=== PATIENT | female | born 1975 | race Caucasian/White ===

== ENCOUNTER 2018-09-30 16:57 | Emergency (ER) | payer OTHER ==
[2018-09-30 16:57] VITALS: BMI 44.8
[2018-09-30 17:06] VITALS: BP 128/71; PULSE 74; RESP 18; TEMP 98.8
--- NOTE | 2018-09-30 17:26 | ED PDOC ---
Arrival/HPI - General Chief Complaint: Shortness Of Breath Time Seen by Provider: 09/30/18 16:58 Historian: Patient - History of Present Illness Narrative History of Present Illness (Text): 09/30/18 17:24 43 y/o female, pmh including asthma, nkda, c/o coughing and shortness of breath x 5 days. pt. stated that she is on albuterol MDI/symbicort, coughing with occasional shortness of breath, on taper dose prednisone, no chest pain, no night sweat, no rash, no numbness or tingling, no dizziness, no change in vision, no other medical or psychological complaints. Past Medical History - Provider Review Nursing Documentation Reviewed: Yes - Infectious Disease Hx of Infectious Diseases: None - Reproductive Menopause: No - Cardiac Hx Cardiac Disorders: No - Pulmonary Hx Asthma: Yes - Neurological Hx Neurological Disorder: No - HEENT Hx HEENT Disorder: Yes (CONTACTS) - Renal Hx Renal Disorder: Yes Hx Kidney Stones: Yes (LONG AGO/PASSED NO SURGERY) - Endocrine/Metabolic Hx Endocrine Disorders: No - Hematological/Oncological Hx Blood Disorders: No - Integumentary Hx Dermatological Disorder: No - Musculoskeletal/Rheumatological Hx Musculoskeletal Disorders: Yes Hx Back Pain: (BILATERAL SCIATICA/INTERMITTENT) - Gastrointestinal Hx Gastrointestinal Disorders: No - Genitourinary/Gynecological Hx Genitourinary Disorders: Yes (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) - Psychiatric Hx Psychophysiologic Disorder: No Hx Substance Use: No - Surgical History Hx Breast Biopsy: Yes ( LEFT X2 BENIGN) Hx Tubal Ligation: Yes - Anesthesia Hx Anesthesia: Yes Hx Anesthesia Reactions: No Hx Malignant Hyperthermia: No Family/Social History - Physician Review Nursing Documentation Reviewed: Yes Family/Social History: Unknown Family HX Smoking Status: Never Smoked Hx Alcohol Use: No Hx Substance Use: No Allergies/Home Meds Allergies/Adverse Reactions: Allergies shellfish derived Allergy (Verified 09/30/18 17:06) RASH Home Medications: Home Meds Medication Instructions Recorded Confirmed Albuterol Sulfate [Proair Hfa] 0.09 mg IH 09/30/18 Budesonide/Formoterol Fumarate 1 aer IH BID 09/30/18 09/30/18 [Symbicort] Codeine Phosphate/Guaifenesin 5 ml PO PRN 09/30/18 09/30/18 [Virtussin AC Liquid] Prednisone [Deltasone] 10 mg PO 09/30/18 Review of Systems - Review of Systems Constitutional: absent: Fatigue, Fevers Eyes: absent: Vision Changes ENT: absent: Hearing Changes Respiratory: SOB, Cough, Sputum, Wheezing Cardiovascular: absent: Chest Pain Gastrointestinal: absent: Abdominal Pain, Nausea, Vomiting Musculoskeletal: absent: Arthralgias, Back Pain Skin: absent: Rash, Pruritis Neurological: absent: Headache, Dizziness Psychiatric: absent: Anxiety, Depression, Suicidal Ideation Physical Exam Vital Signs Reviewed: Yes Vital Signs Temp Pulse Resp BP Pulse Ox 09/30/18 17:02 98.8 F 74 18 128/71 96 Temperature: Afebrile Blood Pressure: Normal Pulse: Regular Respiratory Rate: Normal Appearance: Positive for: Well-Appearing, Non-Toxic, Comfortable Pain Distress: None Mental Status: Positive for: Alert and Oriented X 3 - Systems Exam Head: Present: Atraumatic, Normocephalic Pupils: Present: PERRL Extroacular Muscles: Present: EOMI Conjunctiva: Present: Normal Mouth: Present: Moist Mucous Membranes Neck: Present: Normal Range of Motion Respiratory/Chest: Present: Decreased Breath Sounds, Rhonchi. No: Respiratory Distress, Accessory Muscle Use, Wheezes, Rales, Retracting, Tachypneic, Tender to Palpation Cardiovascular: Present: Regular Rate and Rhythm, Normal S1, S2. No: Murmurs Abdomen: No: Tenderness, Distention, Peritoneal Signs, Rebound, Guarding Back: Present: Normal Inspection Upper Extremity: Present: Normal Inspection. No: Cyanosis, Edema Lower Extremity: Present: Normal Inspection. No: Edema Neurological: Present: GCS=15, CN II-XII Intact, Speech Normal Skin: Present: Warm, Dry, Normal Color. No: Rashes Psychiatric: Present: Alert, Oriented x 3, Normal Insight, Normal Concentration Medical Decision Making ED Course and Treatment: 09/30/18 17:25 -labs -chest xray -ekg -duoneb -observe and reassess 09/30/18 19:35 -Urine hcg is negative -EKG: NSR @ 94 BPM, no ST elevation or depression, no T wave inversion. -Chest xray show No consolidation or atelectasis or pleural effusion identified. no obvious consolidation, azithromycin. -Rapid flu is negative, clinical suspicious is low. -Labs show no acute findings -Dimer is negative. -Trop after 24 hours is negative -BNP within normal limit, HEART score is low. -Pt. feels well, lung is clear to auscultate with no wheezing/crackles/rhonchis. 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 - RAD Interpretation Radiology Orders: 09/30/18 17:21 CHEST PORTABLE [RAD] Stat CR Chest, 1 View. CLINICAL HISTORY: Cough 4-5 days COMPARISON: None provided. FINDINGS: LUNGS: The lungs appear clear. PLEURAL SPACES: No evidence of pleural effusion or pneumothorax. MEDIASTINUM: The cardiomediastinal silhouette is within normal limits. BONES: No acute osseous abnormality. IMPRESSION: No consolidation or atelectasis or pleural effusion identified. Electronically signed on Sep 30, 2018 7:36:33 PM EST by: Victor Hugo Car M.D., Certified by [facility], Diagnostic Radiology Rehabilitation Team Lead: Radiologist - EKG Interpretation EKG Interpretation (Text): 09/30/18 19:21 -EKG: NSR @ 94 BPM, no ST elevation or depression, no T wave inversion. 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 Disposition/Present on Arrival - Present on Arrival Any Indicators Present on Arrival: No History of DVT/PE: No History of Uncontrolled Diabetes: No Urinary Catheter: No History of Decub. 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 Prescriptions: Azithromycin 250 mg PO DAILY #4 tab Brompheniramine/Pseudoephed/Dm [Bromfed Dm Cough 118 ml] 10 ml PO QID PRN #250 ml PRN Reason: Other Montelukast [Singulair] 10 mg PO DAILY #10 tab Referrals: Kwan Richardson MD [Primary Care Provider] - Follow up with primary Meghan Matthew MD [Staff Provider] - Follow up with primary Forms: [facility] (Algerian), WORK NOTE
[2018-09-30] MEDS ORDERED: Sodium Chloride 0.9% 1,000 ML IV SCH (17:30)
[2018-09-30] MEDS: Albuterol-Ipratrop 3 mg / 0.5 (3 ml) UD IH SCH (18:14)
[2018-09-30 18:28] LABS: BASO # 0.02 K/mm3 (0.0-2.0); BASO % 0.2 % (0.0-3.0); HEMOGLOBIN 12.8 g/dL (12.0-16.0); LYMPH # 1.9 (1.2-3.4); LYMPH % 18.9 % (22.0-35.0); MEAN CELL VOLUME 85.1 fl (80.0-105.0); MEAN CORPUSCULAR HEMOGLOBIN 27.6 pg (25.0-35.0); MEAN CORPUSCULAR HGB CONC 32.4 g/dl (31.0-37.0); MEAN PLATELET VOLUME 8.9 fl (7.0-11.0); MONO # 0.5 (0.1-0.6); MONO % 4.5 % (1.0-6.0); RBC 4.64 10^6/uL (3.5-6.1); RED CELL DISTRIBUTION WIDTH 15.6 % (11.5-14.5)
[2018-09-30 18:42] LABS: ALB/GLOB RATIO 1.1 (1.1-1.8); ALBUMIN 4.1 g/dL (3.0-4.8); ALT/SGPT 22 U/L (7-56); AST/SGOT 28 U/L (14-36); BLOOD UREA NITROGEN 14 mg/dL (7-21); CALCIUM 11.4 mg/dL (8.4-10.5); GFR NON-AFRICAN AMERICAN > 60
[2018-09-30 18:54] LABS: B-TYPE NATRIURETIC PEPTIDE 37.9 pg/mL (0-450); TROPONIN I < 0.01 ng/mL
[2018-09-30 19:52] VITALS: O2SAT 97
--- NOTE | 2018-10-01 09:00 | RAD ---
HISTORY: cough x 4-5 days COMPARISON: None available. TECHNIQUE: Chest, one view. FINDINGS: LUNGS: No focal consolidation. PLEURA: No significant pleural effusion identified. No definite pneumothorax . CARDIOVASCULAR: Heart size appears within normal limits. No significant atherosclerotic calcification present. OSSEOUS STRUCTURES: No acute osseous abnormality identified. VISUALIZED UPPER ABDOMEN: Unremarkable. OTHER FINDINGS: None. IMPRESSION: No focal consolidation.
--- NOTE | 2018-10-02 07:49 | CARD ---
APPROVED REPORT Date of service: 09/30/2018 EKG Measurement Heart [id number] <Conclusion> Normal sinus rhythm Inferior infarct, age undetermined Cannot rule out Anterior infarct, age undetermined Abnormal ECG
== END 2018-09-30 19:51 | disposition home or self-care (01) ==
LOC: ED 16:57
DX: J45.909 Unspecified asthma, uncomplicated (principal)
CPT/HCPCS: 71045; 80053; 81025; 83735; 83880; 84484; 85025; 85378; 87804; 93005; 94640; 96374; 99283; J2930; J7030